=== PATIENT | female | born 1980 | race Caucasian/White ===

== ENCOUNTER 2022-04-20 21:40 | Emergency (ER) | payer OTHER ==
[2022-04-20] MEDS ORDERED: Acetaminophen/HYDROcodone 325-5 MG Tab PO ONE (21:41)
[2022-04-20] MEDS ORDERED: Ibuprofen 800 MG Tab PO ONE (22:14)
[2022-04-20] MEDS ORDERED: Acetaminophen 500 MG Tab PO ONE (22:14)
[2022-04-20] MEDS ORDERED: Acetaminophen/oxyCODONE 325-5 MG Tab PO STA (23:09)
== END 2022-04-20 23:28 | disposition home or self-care (01) ==
LOC: FB.ED 21:40
DX: S82.54XA Nondisplaced fracture of medial malleolus of right tibia, initial encounter for closed fracture (principal); E03.9 Hypothyroidism, unspecified; E66.9 Obesity, unspecified; Z68.31 Body mass index [BMI] 31.0-31.9, adult; Z79.899 Other long term (current) drug therapy; Z86.16 Personal history of COVID-19; X50.1XXA Overexertion from prolonged static or awkward postures, initial encounter
CPT/HCPCS: 29515; 73610; 99283; A9270